=== PATIENT | female | born 1990 | race American Indian/Alaskan Native ===

== ENCOUNTER 2018-09-24 00:13 | Emergency (ER) | payer OTHER ==
[2018-09-24 00:26] VITALS: BP 130/84
[2018-09-24] MEDS ORDERED: TYLENOL PO ONE (04:11)
[2018-09-24] MEDS ORDERED: DECADRON IV ONE (04:11)
[2018-09-24] MEDS ORDERED: REGLAN PO ONE (04:11)
[2018-09-24] MEDS ORDERED: BENADRYL PO ONE (04:11)
--- NOTE | 2018-09-24 05:30 | Emergency Department Report ---
ED Headache HPI - General Chief Complaint: Headache Stated Complaint: HEADACHE Time Seen by Provider: 09/24/18 04:10 Exam Limitations: no limitations - History of Present Illness Initial Comments: pt is a 28 y/o aaf with hx headaches who presents for headache right frontal x 4 days , there is associated sinus congestion with clear post nasal drip , , dizziness , photophobia, and intermittent nausea no vomiting. Timing/Duration: other (3 day ) Quality: moderate Head Injury Location: frontal Recent Head Trauma: no recent headache/trauma, occasional headaches Modifying Factors: improves with: movement Associated Symptoms: nausea/vomiting, nasal congestion, nasal drainage. denies: rash Allergies/Adverse Reactions: Allergies No Known Allergies Allergy (Unverified 09/24/18 00:21) Home Medications: Ambulatory Orders Acetaminophen [Tylenol Extra Strength] 1,000 mg PO QID PRN #30 tablet 09/24/18 Metoclopramide [Reglan] 10 mg PO Q6H #30 tablet 09/24/18 diphenhydrAMINE [Benadryl CAP] 25 mg PO Q6HR PRN #30 capsule 09/24/18 ED Review of Systems ROS: Stated complaint: HEADACHE Other details as noted in HPI Constitutional: denies: chills, fever Eyes: denies: eye pain, eye discharge, vision change ENT: denies: ear pain, throat pain Respiratory: denies: cough, shortness of breath, wheezing Cardiovascular: denies: chest pain, palpitations Endocrine: no symptoms reported Gastrointestinal: denies: abdominal pain, nausea, diarrhea Genitourinary: denies: urgency, dysuria, frequency, hematuria, discharge Musculoskeletal: denies: back pain, joint swelling, arthralgia, myalgia Skin: denies: rash, lesions Neurological: headache. denies: weakness, numbness, paresthesias, confusion, vertigo Psychiatric: denies: anxiety, depression ED Past Medical Hx - Past Medical History Previous Medical History?: No - Surgical History Past Surgical History?: No - Social History Smoking Status: Never Smoker Substance Use Type: None - Medications Home Medications: Home Medications Medication Instructions Recorded Confirmed Last Taken Type Acetaminophen [Tylenol Extra 1,000 mg PO QID PRN #30 tablet 09/24/18 Unknown Rx Strength] Metoclopramide [Reglan] 10 mg PO Q6H #30 tablet 09/24/18 Unknown Rx diphenhydrAMINE [Benadryl CAP] 25 mg PO Q6HR PRN #30 capsule 09/24/18 Unknown Rx ED Physical Exam - General Limitations: No Limitations General appearance: alert - Head Head exam: Present: atraumatic, normocephalic - Eye Eye exam: Present: normal appearance, PERRL, EOMI. Absent: conjunctival injection, nystagmus Pupils: Present: normal accommodation - ENT ENT exam: Present: normal orophraynx, mucous membranes moist, TM's normal bilaterally, normal external ear exam - Expanded ENT Exam Expanded Ear exam: Present: normal external inspection, other (bilat maxillary sinus tenderness to deep palpation. ) Mouth exam: Absent: trismus Throat exam: Positive: normal inspection, tonsillar erythema, other (uvula midline no stridor no swelling no exudate no lesions , noted clear post nasal drip ). Negative: tonsillomegaly, tonsillar exudate, R peritonsillar mass, L peritonsillar mass - Neck Neck exam: Present: normal inspection, full ROM. Absent: tenderness, meningismus, lymphadenopathy, thyromegaly - Respiratory Respiratory exam: Present: normal lung sounds bilaterally. Absent: respiratory distress, wheezes, rales, rhonchi, stridor, chest wall tenderness - Cardiovascular Cardiovascular Exam: Present: regular rate, normal rhythm, normal heart sounds. Absent: systolic murmur, diastolic murmur, rubs, gallop - GI/Abdominal GI/Abdominal exam: Present: soft, distended, normal bowel sounds. Absent: tenderness, guarding, rebound, rigid, bruit, hernia - Rectal Rectal exam: Present: deferred - Extremities Exam Extremities exam: Present: normal inspection, full ROM, normal capillary refill. Absent: tenderness, pedal edema, joint swelling, calf tenderness - Back Exam Back exam: Present: normal inspection, full ROM. Absent: tenderness, CVA tenderness (R), CVA tenderness (L), muscle spasm, paraspinal tenderness, rash noted - Neurological Exam Neurological exam: Present: alert, oriented X3, CN II-XII intact, normal gait, reflexes normal - Expanded Neurological Exam Expanded Patient oriented to: Present: person, place, time Speech: Present: fluid speech Cranial nerves: EOM's Intact: Normal, Gag Reflex: Normal, Tongue Deviation: Normal, Nystagmus: Normal, Facial Sensation: Normal, Facial Palsy with Forehead Movement: Normal, Facial Palsy without Forehead Movement: Normal Cerebellar function: Finger to Nose: Normal, Heel to Duncan: Normal, Romberg: Normal Upper motor neuron: Trae Neglect: Normal, Pronator Drift: Normal, Babinski Sign: Normal, Sensory Extinction: Normal Sensory exam: Upper Extremity Light Touch: Normal, Upper Extremity Pin Prick: Normal, Upper Extremity Temperature: Normal, Lower Extremity Light Touch: Normal, Lower Extremity Pin Prick: Normal, Lower Extremity Temperature: Normal, LE 2 Point Discrimination: Normal Motor strength exam: RUE: 5, LUE: 5, RLE: 5, LLE: 5 DTR: bicep (R): 2+, bicep (L): 2+, ankle (R): 2+, ankle (L): 2+ Best Eye Response (Hope): (4) open spontaneously Best Motor Response (Hope): (6) obeys commands Best Verbal Response (Ananth): (5) oriented Hope Total: 15 - Psychiatric Psychiatric exam: Present: normal affect, normal mood - Skin Skin exam: Present: warm, dry, intact, normal color. Absent: rash ED Course Vital Signs 09/24/18 00:21 Temperature 97.9 F Pulse Rate 97 H Respiratory 16 Rate Blood Pressure 130/84 O2 Sat by Pulse 100 Oximetry ED Medical Decision Making - Radiology Data Radiology results: report reviewed, image reviewed normal CT head no bleed no mass no acute findings - Medical Decision Making CT head is is no mass no bleed no acute abnormality is Tylenol Reglan Benadryl patient follow with PCP in 2 days patient [facility] given referral to neurology patient will follow both as directed patient verbalized agreement and understanding of discharge plan patient is currently alert and oriented 3 patient is an R symptoms are improving states she is ready to go home this is a reasonable request at this time is in no acute findings except mild allergic rhinitis Critical care attestation.: If time is entered above; I have spent that time in minutes in the direct care of this critically ill patient, excluding procedure time. ED Disposition Clinical Impression: Headache Qualifiers: Headache type: unspecified Headache chronicity pattern: unspecified pattern Intractability: not intractable Qualified Code(s): R51 - Headache Disposition: - TO HOME OR SELFCARE Is pt being admited?: No Does the pt Need Aspirin: No Condition: Stable Instructions: Acute Headache (ED) Prescriptions: diphenhydrAMINE [Benadryl CAP] 25 mg PO Q6HR PRN #30 capsule PRN Reason: Headache Metoclopramide [Reglan] 10 mg PO Q6H #30 tablet Acetaminophen [Tylenol Extra Strength] 1,000 mg PO QID PRN #30 tablet PRN Reason: Headache Referrals: [facility] [Outside] - 3-5 Days ABDULKADIR ELIZONDO MD [Referring] - 3-5 Days Forms: Work/School Release Form(ED) Time of Disposition: 06:01
--- NOTE | 2018-09-24 05:45 | Cat Scan Report ---
PROCEDURE: CT HEAD/BRAIN WO CON TECHNIQUE: Computerized tomography of the head was performed without contrast material. HISTORY: headache COMPARISONS: None . FINDINGS: Skull and scalp: Normal . Paranasal sinuses: Normal . Ventricles and subarachnoid spaces: Normal . Cerebrum: No evidence of hemorrhage, acute infarction or mass . Cerebellum and brainstem: No evidence of hemorrhage, acute infarction or mass . Vasculature: Normal . Other: None . ASPECTS: 10 IMPRESSION: Normal Examination . This document is electronically signed by Emerita Graham DO., September 24 2018 05:43:51 AM ET
== END 2018-09-24 06:02 | disposition home or self-care (01) ==
LOC: ED 00:13
DX: R51 Headache (principal)
CPT/HCPCS: 70450; J1100; 96374